=== PATIENT | female | born 1970 | race Caucasian/White ===

== ENCOUNTER 2020-05-25 16:22 | Inpatient (IN) | payer OTHER ==
[~2020-05-25] VITALS: Ht 172.7 cm; Wt 74.4 kg
--- NOTE | ~2020-05-25 | OP ---
[facility] [address] [place] [address] OPERATIVE REPORT Name: ONUR STEPHEN Room: [address] IN .R.#: [id number] Admission: 05/25/20 Attend Phys: Ermelinda Washington MD Discharge: Date of : 72 Report #: [id number] THIS REPORT FOR: cc: Selene Gutiérrez MD, Regina MD Patterson,Jan Fulton MD ~ DATE OF SERVICE: 05/25/2020 PREOPERATIVE DIAGNOSIS: Acute cholecystitis. POSTOPERATIVE DIAGNOSIS: Acute cholecystitis. OPERATION: Laparoscopic cholecystectomy. SURGEON: Jan Benavidez MD ANESTHESIA: General. ESTIMATED BLOOD LOSS: Minimal. SPECIMEN: Gallbladder. DESCRIPTION OF PROCEDURE: After informed consent was obtained, the patient was brought to the operating room and placed supine. SCDs were placed and working, preoperative antibiotics were administered, general anesthesia was induced. The abdomen was prepped and draped in the usual sterile fashion. A 10 mm incision was made below the umbilicus. Fascia was incised and a trocar was placed. Pneumoperitoneum was established. Three right upper quadrant 5 mm ports were placed. The gallbladder was grasped and retracted cephalad. Infundibulum was grasped and retracted laterally. I dissected out the cystic duct and cystic artery. Cystic plate was fully identified. Cystic duct and artery were clipped and ligated leaving 2 clips on the remaining duct and one on the remaining artery. Gallbladder was then taken off the liver bed with electrocautery. It was placed into an Endopouch and removed. The fascia was then closed with a yletye-ho-radvz 0 Vicryl. Skin was closed with 4-0 Monocryl. Incisions were sealed with Steri-Strips. COMPLICATIONS: [place] [address] OPERATIVE REPORT Name: ONUR STEPHEN Room: [address]#: [id number] Admission: 05/25/20 Attend Phys: Ermelinda Washington MD Discharge: Date of : 72 Report #: [id number] DISPOSITION: The patient was taken to recovery in satisfactory condition. By: [id number] Benavidez MD /zion
[~2020-05-25 16:22] MED LIST: NOHOMEMEDICATIONS
[2020-05-25 16:30] VITALS: BP 125/70
[2020-05-25] MEDS ORDERED: SERTRALINE HCL100 MG PO (16:35)
[2020-05-25 16:53] LABS: ABSOLUTE EOSINOPHILS 0.1 thou/uL (0.0-0.7); ABSOLUTE MONOCYTES 0.6 thou/uL (0.0-1.2); ABSOLUTE NEUTROPHILS 3.7 thou/uL (1.6-8.1); BASOPHILS 0.6 %; EOSINOPHILS 1.1 %; HEMATOCRIT 38.7 % (37.0-47.0); LYMPHOCYTES 30.9 %; MCH 29.4 pg (26.0-34.0); MCHC 33.6 g/dL (28.0-37.0); MCV 87.6 fL (80.0-100.0); MONOCYTES 8.9 %; NUCLEATED RBCS 0 /100WBC; PLATELET COUNT* 266 thou/uL (150-400); POLYS 58.5 %; RBC 4.42 mil/uL (4.20-5.00); RDW-CV 13.3 % (10.5-14.5); WBC 6.3 thou/uL (4.0-11.0)
[2020-05-25 17:03] LABS: CALCIUM 9.1 mg/dL (8.5-10.1); CREATININE 0.9 mg/dL (0.6-1.3); POTASSIUM 3.7 mmol/L (3.5-5.1)
[2020-05-25 17:07] LABS: ALBUMIN 4.1 g/dL (3.4-5.0); TOTAL BILIRUBIN 0.3 mg/dL (<0.1-1.0); TOTAL PROTEIN 7.7 g/dL (6.4-8.2)
[2020-05-25 17:12] LABS: URINE BILIRUBIN NEGATIVE (Negative); URINE BLOOD NEGATIVE (Negative); URINE CLARITY CLEAR; URINE COLOR YELLOW; URINE GLUCOSE-RANDOM NEGATIVE (Negative); URINE KETONES TRACE (Negative); URINE LEUKOCYTES-REFLEX NEGATIVE (Negative); URINE NITRITE-REFLEX NEGATIVE (Negative); URINE PROTEIN NEGATIVE (Negative); URINE SPECIFIC GRAVITY >= 1.030 (1.005-1.030); URINE UROBILINOGEN 0.2 E.U./dl (0.2-1.0)
[2020-05-25 19:49] VITALS: BP 106/60
[2020-05-25 20:00] VITALS: BP 123/56
[2020-05-26 04:30] LABS: HEMATOCRIT 34.4 % (37.0-47.0); HEMOGLOBIN 11.7 gm/dL (12.0-15.0); MCH 29.6 pg (26.0-34.0); MCV 87.2 fL (80.0-100.0); MPV 7.7 fl. (7.2-11.1); RBC 3.95 mil/uL (4.20-5.00); RDW-CV 13.4 % (10.5-14.5); WBC 5.8 thou/uL (4.0-11.0)
[2020-05-26 04:56] LABS: CALCIUM 8.5 mg/dL (8.5-10.1); CREATININE 0.8 mg/dL (0.6-1.3); POTASSIUM 4.1 mmol/L (3.5-5.1)
[2020-05-26 07:04] VITALS: BP 123/56
[2020-05-26 08:00] VITALS: BP 133/67
--- NOTE | 2020-05-26 11:20 | EKG ---
[place] [address] ELECTROCARDIOGRAM REPORT Name: ONUR STEPHEN Room: [address] ADM IN .R.#: [id number] Admission: 05/25/20 Attend Phys: Ermelinda Washington MD Discharge: Date of : 72 Date of Service: 05/25/20 1638 Report #: [id number] THIS REPORT FOR: //name// [facility] ED Test Date: 2020-05-25 Test Time: 16:38:13 Pat Name: ONUR STEPHEN Department: Room: [facility] Gender: F Last Model Maker: ABBY : 1970 Requested By: Tono Samson Order Number: [id number] MD: Dez Lopez Measurements Intervals [place] Rate: 53 P: 13 IA: 122 QRS: 70 QRSD: 89 T: 76 QT: 464 QTc: 436 Interpretive Statements Sinus rhythm Anteroseptal infarct, age indeterminate possible No previous ECG available for comparison Electronically Signed On 05-26-2020 11:20:46 CDT by Dez Lopez [email or web address] <ELECTRONICALLY SIGNED> By: Dez Lopez MD, [facility] 05/26/20 1120 1638 1638 Dez Lopez MD, [facility] /EPI
[2020-05-26 16:40] VITALS: BP 130/61
[2020-05-26 19:50] VITALS: BP 103/51
[2020-05-27 00:02] VITALS: BP 105/47
[2020-05-27 04:06] VITALS: BP 101/49
[2020-05-27 06:26] LABS: HEMATOCRIT 33.9 % (37.0-47.0); HEMOGLOBIN 11.4 gm/dL (12.0-15.0); MCH 29.2 pg (26.0-34.0); MCHC 33.5 g/dL (28.0-37.0); MCV 87.1 fL (80.0-100.0); MPV 7.6 fl. (7.2-11.1); RBC 3.89 mil/uL (4.20-5.00); RDW-CV 13.5 % (10.5-14.5); WBC 11.5 thou/uL (4.0-11.0)
[2020-05-27 06:48] LABS: CREATININE 0.7 mg/dL (0.6-1.3); POTASSIUM 3.3 mmol/L (3.5-5.1)
[2020-05-27 08:00] VITALS: BP 105/52
[2020-05-27] MEDS ORDERED: COLACE100 MG PO (08:08)
[2020-05-27] MEDS ORDERED: HYDROCODON-ACE1 EAC7 PO (08:08)
[2020-05-27] MEDS ORDERED: PHENERGAN 25 MG25 M1 PO (08:08)
[2020-05-27 12:00] VITALS: BP 102/46
[2020-05-27 12:10] VITALS: BP 105/52
--- NOTE | 2020-05-28 17:07 | PATH ---
[address] [address] PATHOLOGY RPT PROCEDURE Name: GUERA ZARATE Room: [address] IN M.R.#: [id number] Admission: 05/25/20 Date of : 72 Discharge: 05/27/20 Report #: [id number] Path Case #: [id number] [facility] Accession Number: [id number] . 01 Material submitted: . gallbladder - GALLBLADDER . 01 Clinical history: . CHOLECYSTITIS LAPAROSCOPIC CHOLECYSTECTOMY . 02 Diagnosis: Gallbladder: - Chronic cholecystitis with cholesterolosis. ([place]:pit 05/28/2020) QTP 05/28/2020 1509 Local . 02 Electronically signed: . Santo Napoles MD, Pathologist NPI- [id number] . 01 Gross description: . The specimen is received in formalin, labeled "Guera Zarate", "gallbladder". Received is an intact gallbladder measuring 7.2 x 2.7 x 2.1 cm. The external surface is smooth, shiny and dark yellow-green. Opening the gallbladder reveals a dark green, velvety, bile-stained mucosa with multiple bright yellow raised streaks scattered throughout. No polypoid adhesions or solid masses are identified. The gallbladder wall measures 0.2 cm in thickness. No calculi are present. Ledge Man sections are submitted in cassette A1.(SNA; 05/27/2020) AUDREY/SLICK 05/27/2020 0910 Local . 02 Pathologist provided ICD-10: K81.1, K82.4 . 02 CPT . 839115 Specimen Comment: A courtesy copy of this report has been sent to [phone], [phone] Specimen Comment: [phone], Specimen Comment: Report sent to ,DR AMOS / DR ALLEN Performed at: [address], [place] [id number] MD Magdaleno Peck MD Phone: [phone] Performed at: [address] [id number] [address] [address] PATHOLOGY RPT PROCEDURE Name: GUERA ZARATE MARIA M Room: [address] IN M.R.#: [id number] Admission: 05/25/20 Date of : 72 Discharge: 05/27/20 Report #: [id number] Path Case #: [id number] [facility] Phone: [phone]
== END 2020-05-27 12:55 | disposition home or self-care (01) | DRG 419 ==
LOC: M.ERS 16:22 → M.ORTHSURG 18:45 → M.TBA-ER 18:45 → M.ORTHSURG 20:13
PROVIDERS: Emergency Medicine Emergency Medical Services; Internal Medicine; ADMIT Family Medicine; ATTEND Family Medicine
PROC: 0FT44ZZ Resection of Gallbladder, Percutaneous Endoscopic Approach (ICD-10-PCS; principal; 2020-05-26)
DX: K81.0 Acute cholecystitis (principal); F41.9 Anxiety disorder, unspecified; E78.5 Hyperlipidemia, unspecified; F32.9 Major depressive disorder, single episode, unspecified; Z20.822 Contact with and (suspected) exposure to COVID-19; Z98.891 History of uterine scar from previous surgery; Z90.710 Acquired absence of both cervix and uterus; Z79.899 Other long term (current) drug therapy; Z88.0 Allergy status to penicillin